=== PATIENT | male | born 1975 | race Caucasian/White ===

== ENCOUNTER 2017-02-18 15:50 | Emergency (ER) | payer MEDICAID ==
[2017-02-18] MEDS ORDERED: MAGNESIUM HYDROXIDE/AL HYDROX 30 ML, LIDOCAINE VISC 2% 200 MG PO ONE ×2 (16:08)
[2017-02-18] MEDS ORDERED: SODIUM CHLORIDE 0.9% 500 ML IV ONE (16:08)
--- NOTE | 2017-02-18 16:12 | Emergency Department Record ---
History of Present Illness - General Chief Complaint: Abdominal Pain Stated Complaint: UPPER ABD PAIN Time Seen by Provider: 02/18/17 16:03 Source: Patient Mode of Arrival: Ambulatory Limitations: No limitations - History of Present Illness Initial Comments: The patient is here due to developing epigastric AP after eating lunch today about 3.5 hours ago. The pain is an aching crampy pain mainly in the upper abdomen. He denies any nausea, vomiting, or diarrhea. Presently the pain is improving but the patient was mildly lightheaded earlier. He did have similar pain yesterday after eating lunch but it went away with gas pills. 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 The patient denies any CP, SOB, back pain or dysuria. MD Complaint: Abdominal pain Onset/Timin -: Days(s) Location: Epigastric Severity: Moderate Quality: Burning, Sharp, Other Consistency: Intermittent Improves With: Nothing Worsens With: Eating Associated Symptoms: Denies other symptoms - Related Data Home Medications Medication Instructions Recorded Confirmed Last Taken Testosterone [Testosterone] 30 mg IM ASDIR 02/18/17 02/18/17 Unknown Previous Rx's Medication Instructions Recorded Sucralfate [Carafate] 1 gm PO QID #28 tablet 02/18/17 Allergies Allergy/AdvReac Type Severity Reaction Status Date / Time No Known Drug Allergies Allergy Verified 02/18/17 16:00 Travel Screening - Travel/Exposure Within Last 30 Days Have you traveled within the last 30 days?: No Review of Systems Constitutional: Denies: Chills, Fever Eyes: Denies: Eye discharge ENT: Denies: Congestion Respiratory: Denies: Cough, Dyspnea Past Medical History - SOCIAL HISTORY Smoking Status: Former smoker Alcohol Use: None Drug Use Detail:: Marijuana - RESPIRATORY Hx Respiratory Disorders: No - CARDIOVASCULAR Hx Cardio Disorders: No - NEURO Hx Neuro Disorders: No - GI Hx GI Disorders: No - Hx Genitourinary Disorders: No - ENDOCRINE Hx Endocrine Disorders: No - MUSCULOSKELETAL Hx Musculoskeletal Disorders: Yes - PSYCH Hx Psych Problems: No - HEMATOLOGY/ONCOLOGY Hx Hematology/Oncology Disorders: No Family Medical History Any Significant Family History?: No Physical Exam - General General Appearance: Alert, Cooperative, No acute distress - Head Head exam: Atraumatic, Normocephalic, Normal inspection - Eye Eye exam: Normal appearance, PERRL - Neck Neck exam: Normal inspection, Full ROM. negative: Tenderness - Respiratory Respiratory exam: Normal lung sounds bilaterally. negative: Respiratory distress - Cardiovascular Cardiovascular Exam: Regular rate, Normal rhythm, Normal heart sounds - GI/Abdominal GI/Abdominal exam: Soft, Normal bowel sounds, Tenderness (There is mild epigastic AP to palpation.). negative: Rebound, Rigid - Extremities Extremities exam: Normal inspection, Full ROM, Normal capillary refill. negative: Tenderness Course Vital Signs 02/18/17 15:54 Temperature 98.5 F Pulse Rate 92 H Respiratory 20 Rate Blood Pressure 146/94 Pulse Ox 96 - Reevaluation(s) Reevaluation #1: The patient is doing much better at this time. He denies any pain or discomfort. On exam his abdomen is very soft and nontender in all 4 quads. I did explain to him that I think he needs an abdominal US but unfortunately am not able to order it today. He is to see his PCP next week for further eval. 02/18/17 17:27 Medical Decision Making - Data Complexity MDM Data: Labs Ordered and/or Reviewed - Lab Data Result diagrams: 02/18/17 16:08 02/18/17 16:20 Disposition Disposition: Discharge Clinical Impression: Abdominal pain Qualifiers: Abdominal location: right upper quadrant Qualified Code(s): R10.11 - Right upper quadrant pain Disposition: Home, Self-Care Condition: (2) Stable Instructions: Abdominal Pain (ED) Additional Instructions: Please eat a very bland diet with no fatty or fried foods. Take the Carafate as directed. Please see your PCP this week for recheck and to have the US ordered. Return to the ER for any increased pain, fever, or vomiting. Prescriptions: Sucralfate [Carafate] 1 gm PO QID #28 tablet Forms: Patient Portal Access Time of Disposition: 17:30 Quality - Quality Measures Quality Measures: N/A - Blood Pressure Screening View Details: Yes Does Patient Have Any of the Following: No Blood Pressure Classification: Pre-Hypertensive BP Reading Systolic Measurement: 132 Diastolic Measurement: 84 Screening for High Blood Pressure: < Pre-Hypertensive BP, F/U Documented > [ [id number]] Pre-Hypertensive Follow-up Interventions: Referral to alternative/primary care provider.
[2017-02-18 16:54] LABS: BASO % 0.3 % (0-6); EOS % 2.2 % (0-6); GRAN % 68.2 % (47-80); HEMATOCRIT 45.8 % (42.0-52.0); HEMOGLOBIN 16.2 gm/dl (14.0-18.0); LYMPH % 20.3 % (16-45); MEAN CELL VOLUME 83.3 fl (81-97); MEAN CORPUSCULAR HEMOGLOBIN 29.5 pg (27-33); MEAN CORPUSCULAR HGB CONC 35.4 g/dl (32-36); MEAN PLATELET VOLUME 9.5 fl (7.4-10.4); PLATELET COUNT 283 K/uL (130-400); RED CELL DISTRIBUTION WIDTH 13.8 % (11.5-14.5); WHITE BLOOD COUNT W/O DIFF 10.4 K/uL (4.2-12.2)
[2017-02-18] MEDS ORDERED: SUCRALFATE 1 G/10 ML UD PO ONE (16:57)
[2017-02-18 17:09] LABS: BLOOD UREA NITROGEN 9 mg/dL (6-20)
[2017-02-18 17:10] LABS: CREATININE 0.9 mg/dL (0.7-1.2); EST GLOMERULAR FILTRATION RATE > 60 mL/min; TOTAL PROTEIN 6.9 g/dL (6.6-8.7)
[2017-02-18 17:12] LABS: GLUCOSE,RANDOM 100 mg/dL (74-109)
[2017-02-18 17:15] LABS: ALBUMIN 4.1 g/dL (4.0-5.0); ALKALINE PHOSPHATASE 67 U/L (40-129); ALT/SGPT 51 U/L (<41); AST/SGOT 21 U/L (10.0-50.0); LIPASE 26 U/L (13-60)
[2017-02-18 17:17] LABS: BILIRUBIN,DIRECT < 0.2 mg/dL (0-0.3)
== END 2017-02-18 17:42 | disposition home or self-care (01) ==
LOC: ER 15:50
DX: R10.13 Epigastric pain (principal); R42 Dizziness and giddiness
CPT/HCPCS: 80048; 80076; 83690; 85025; 99284